=== PATIENT | female | born 1960 | race Caucasian/White ===

== ENCOUNTER 2017-08-15 18:28 | Emergency (ER) | payer OTHER, BC ==
[~2017-08-15] VITALS: Ht 160 cm; Wt 81.7 kg
[~2017-08-15 18:28] MED LIST: CELEBREX200 MG PO; ESTRACE2 MG PO; FENOFIBRATE48 MG PO; FLONASE ALLERG9.9 ML NS; METOPROLOL TART25 MG PO; NITROSTAT0.4 MG SL; PLAVIX75 MG PO; PRILOSEC20 MG PO; SIMVASTATIN10 MG PO; SYNTHROID112 MCG PO; ZOCOR40 MG PO; ZYRTEC10 MG PO
[2017-08-15] MEDS ORDERED: COREG CR40 MG PO (18:41)
[2017-08-15] MEDS ORDERED: ISENTRESS400 MG PO (19:21)
[2017-08-15] MEDS ORDERED: TRUVADA 200 MG1 EACH PO (19:21)
[2017-08-16] MEDS ORDERED: PHENERGAN25 MG PR (06:35)
== END 2017-08-15 19:46 | disposition home or self-care (01) ==
LOC: ED 18:28
DX: S69.82XA Other specified injuries of left wrist, hand and finger(s), initial encounter (principal); E03.9 Hypothyroidism, unspecified; E78.5 Hyperlipidemia, unspecified; K21.9 Gastro-esophageal reflux disease without esophagitis; Z88.8 Allergy status to other drugs, medicaments and biological substances; Z88.2 Allergy status to sulfonamides; Z88.6 Allergy status to analgesic agent; Z88.1 Allergy status to other antibiotic agents; Z79.899 Other long term (current) drug therapy; W46.0XXA Contact with hypodermic needle, initial encounter; Y99.0 Civilian activity done for income or pay
CPT/HCPCS: 84460; 86703; 86707; 86803; 87350; 99283

== ENCOUNTER 2017-08-16 03:37 | Emergency (ER) | payer OTHER, BC ==
[~2017-08-16] VITALS: Ht 160 cm; Wt 81.7 kg
[~2017-08-16 03:37] MED LIST changes: +COREG CR40 MG PO; +ISENTRESS400 MG PO; +TRUVADA 200 MG1 EACH PO
[2017-08-16] MEDS ORDERED: PHENERGAN25 MG PR (06:35)
== END 2017-08-16 06:50 | disposition home or self-care (01) ==
LOC: ED 03:37
DX: R11.10 Vomiting, unspecified (principal); E03.9 Hypothyroidism, unspecified; K21.9 Gastro-esophageal reflux disease without esophagitis; Z88.8 Allergy status to other drugs, medicaments and biological substances; Z88.2 Allergy status to sulfonamides; Z88.6 Allergy status to analgesic agent; Z88.1 Allergy status to other antibiotic agents
CPT/HCPCS: 80048; 85025; 96374; 99283; J2405; J7030

== ENCOUNTER 2021-05-24 06:00 | Day surgery (SDC) | payer BC ==
[~2021-05-24] VITALS: Ht 160 cm; Wt 83.0 kg
--- NOTE | ~2021-05-24 | OR ---
[facility] [address] [place], [place] [address] Draft DATE OF OPERATION: 05/24/2021 SURGEON: Ivan Motta MD PREOPERATIVE DIAGNOSES: 1. Chronic frontal sinusitis. 2. Chronic ethmoiditis. 3. Chronic maxillary sinusitis. 4. Chronic sphenoid sinusitis. 5. Deviated nasal septum. 6. Recurring acute sinusitis. 7. Sinus headaches. POSTOPERATIVE DIAGNOSES: 1. Chronic frontal sinusitis. 2. Chronic ethmoiditis. 3. Chronic maxillary sinusitis. 4. Chronic sphenoid sinusitis. 5. Deviated nasal septum. 6. Recurring acute sinusitis. 7. Sinus headaches. POSTOPERATIVE DIAGNOSES: 1. Chronic frontal sinusitis. 2. Chronic ethmoiditis. 3. Chronic maxillary sinusitis. 4. Chronic sphenoid sinusitis. 5. Deviated nasal septum. 6. Recurring acute sinusitis. 7. Sinus headaches. PROCEDURES: 1. Bilateral endoscopic frontal ethmoidectomy, 76679-97. 2. Nasal septoplasty, 78971. 3. Bilateral endoscopic sphenoidotomy, 42305-03. 4. Bilateral endoscopic maxillary antrostomies 21266-05. INDICATIONS: This is a 60-year-old female, who has had decades of sinus disease. She was scheduled for sinus surgery a decade ago, but decided not to and she suffered on because she was PATIENT NAME: WES PATEL OPERATIVE REPORT DATE OF : 60 REPORT #: [id number] PHYSICIAN: IVAN MOTTA MD PCP: SARAY KAY MD REPORT IS CONFIDENTIAL AND NOT TO BE RELEASED WITHOUT AUTHORIZATION [facility] [address] [place], [place] [address] Draft afraid of the surgery. Medical treatment was all forms failed. The CT scan showed sinus disease then and now. Because of medical failure to treat her sinus symptoms which were headaches, recurring infections, and obstruction, the above procedures were indicated. DESCRIPTION OF PROCEDURE: The patient was placed in the supine position, had an orotracheal intubation, was placed under general anesthesia. Photographs were taken preop, intraop, and postoperatively. The patient had about 1.5 mL of 2% lidocaine with 1:200,000 epinephrine injected into the lateral nasal wall and the anterior edge of the middle turbinates. The anterior inferior portion of middle turbinate was trimmed away. The uncinate process incised with a sickle knife. Backbiter forceps used to remove a Thru-Cut ethmoid punch and the microdebrider used to remove all of the diseased mucosa and the thin pieces of bone. The maxillary ostium was widened in the posterior fontanelle. Then, the diseased ethmoid air cells were opened one by one and a Thru-Cut ethmoid punch was used to microdebride her and the Kerrison forceps used to do the procedure. The lamina of the middle turbinate was then opened and posterior ethmoids dissected and a trans-ostial sphenoidotomy performed on that left side. Once the ceiling to the sphenoid sinus could be seen, the Kerrison forceps was used to resect the bone going superiorly and inferiorly widening the ostium with Kerrison forceps. Switching to a 70-degree scope, the dissection was carried anteriorly up into the frontal recess. The closed off frontal sinus was found with the upward directed suction and then the Kerrison forceps and the microdebrider and Thru-Cut ethmoid punch were used to fully expose it. The frontal sinus Kerrison forceps was used to remove the beak of the frontal sinus opening that up widely and then removing all of the diseased mucosa in the shards of bone cleanly out of the whole sinus labyrinth. A piece of NasoPore was placed into the sinus cavity to help prevent lateralization of the middle turbinates and some mupirocin ointment was placed on that. Septum was repaired because the endoscopic procedure could not be done on the right side because of the total obstruction, that was up high where it really closed off the middle meatus. A 4 mL of lidocaine were injected into the septum and the incision was made at the junction of the floor inferiorly. Carefully lifting up the mucoperichondrium, not producing any rent in the flap. The submucoperichondrium was lifted up and up onto the bone. the bone from cartilage with the Jonathan D knife and then the blunt end of the Keaton Mecklenburg dissection tool onto both sides, elevating it. Aaron scissors were used to cut that bone inferiorly as well as superiorly. The spur was identified and isolated and removed with a Arnaldo forceps. The septal bone was deviated anteriorly and high quite a bit, so this was removed until there was a good airway and clear exposure of the middle meatus for the sinus surgery. The flaps were then down with 4-0 gut and the anterior incision closed with 4-0 chromic. A couple of mLs of Marcaine were placed into that envelope to help with postop analgesia. The middle turbinate had been very much lateralized by the deviation of the septum, so the anterior inferior portion inferiorly PATIENT NAME: WES PATEL OPERATIVE REPORT DATE OF : 60 REPORT #: [id number] PHYSICIAN: IVAN MOTTA MD PCP: SARAY KAY MD REPORT IS CONFIDENTIAL AND NOT TO BE RELEASED WITHOUT AUTHORIZATION [facility] [address] [facility] [place], [place] [address] Draft was removed. Once there was a good exposure, then the uncinate process was removed. The maxillary ostium opened and widened with both the Thru-Cut ethmoid punch and a backbiter. The ethmoid dissection then was done completely opened just like the left side and then changing to a 70-degree scope coming forward to complete dissection of the ethmoids was done. The frontal sinus was tightly closed off with disease and the sagittal and coronal configuration of the ethmoid air cells. These were opened that was removed. The nasofrontal duct widened the beak removed with the Kerrison frontal sinus punch and then again completely opening all of the sinus oracle erp architect of the sinus labyrinth, carefully removing all of the ragged mucosa and all shards of bone until it was marsupialized into one grand cavity. More NasoPore was placed with some mupirocin that was at the end of the procedure. Estimated blood loss was about 100 mL. There were no complications. The patient did well. MD FABIO Ovalle/LARRY /[id number] Copies: ~ PATIENT NAME: WES PATEL OPERATIVE REPORT DATE OF : 60 REPORT #: [id number] PHYSICIAN: IVAN MOTTA MD PCP: SARAY KAY MD REPORT IS CONFIDENTIAL AND NOT TO BE RELEASED WITHOUT AUTHORIZATION
[~2021-05-24 06:00] MED LIST changes: +COZAAR50 MG PO; +CRESTOR20 MG PO; +PHENERGAN25 MG PR
--- NOTE | 2021-05-24 10:14 | NUR ---
05/24/21 Jim4 Anita Aguilar 1010-PATIENT ARRIVED TO PACU NONAROUSABLE. ON 6L MASK ORAL AIRWAY IN PLACE RR EVEN. SR. IVF INFUSING. NO DRAINAGE TO NOSE GAUZE IN PLACE.
--- NOTE | 2021-05-24 11:27 | NUR ---
UPON RETURNING COUGHING BRIEFLY AND INCONT OF URINE. UP TO BSC VOIDS QS.
--- NOTE | 2021-05-24 11:50 | NUR ---
1150-PATIENT UP TO THE BATHROOM WITH 1 RN ASSIST. GAIT STEADY AND TOLERATED WELL. 1205-PATIENT RESTING IN BED. RR IS EVEN AND UNLABORED. VSS. PATIENT STATES SHE HAS A HEADACHE AND RATES PAIN 2/10. DENIES NAUSEA. TYLENOL GIVEN PER EMAR. DRESSING WAS CLEAN, DRY, AND INTACT. LIGHTS TURNED OFF. CALL LIGHT WITHIN REACH.
== END 2021-05-24 12:50 | disposition home or self-care (01) ==
LOC: DS 06:00 → OPS 06:00 → DS 06:45 → OPS 12:50
PROVIDERS: ATTEND Otolaryngology
PROC: 09BW8ZZ Excision of Right Sphenoid Sinus, Via Natural or Artificial Opening Endoscopic (ICD-10-PCS; 2021-05-24)
PROC: 09BX8ZZ Excision of Left Sphenoid Sinus, Via Natural or Artificial Opening Endoscopic (ICD-10-PCS; 2021-05-24)
PROC: 09BQ8ZZ Excision of Right Maxillary Sinus, Via Natural or Artificial Opening Endoscopic (ICD-10-PCS; 2021-05-24)
PROC: 09BR8ZZ Excision of Left Maxillary Sinus, Via Natural or Artificial Opening Endoscopic (ICD-10-PCS; 2021-05-24)
PROC: 09BU8ZZ Excision of Right Ethmoid Sinus, Via Natural or Artificial Opening Endoscopic (ICD-10-PCS; 2021-05-24)
PROC: 09SM4ZZ Reposition Nasal Septum, Percutaneous Endoscopic Approach (ICD-10-PCS; 2021-05-24)
PROC: 09BV8ZZ Excision of Left Ethmoid Sinus, Via Natural or Artificial Opening Endoscopic (ICD-10-PCS; principal; 2021-05-24 06:45)
DX: J32.8 Other chronic sinusitis (principal); J01.81 Other acute recurrent sinusitis; J34.2 Deviated nasal septum; I10 Essential (primary) hypertension; Z88.2 Allergy status to sulfonamides; Z88.8 Allergy status to other drugs, medicaments and biological substances
CPT/HCPCS: J0330; J1100; J1790; J2001; J2250; J2405; J2704; J7121

== ENCOUNTER 2025-04-22 06:44 | Day surgery (SDC) | payer BC ==
[~2025-04-22] VITALS: Ht 160 cm; Wt 75.0 kg
[~2025-04-22 06:44] MED LIST changes: +FLONASE ALLERG9.9 ML NAS; +MIDAZOLAM HCL 5 MG/5 ML VIAL IV PRN; +VENTOLIN HFA18 GM INH; +fentaNYL citrate 100 MCG/2 ML VIAL IV PRN
[2025-04-22 06:57] VITALS: BP 144/80
[2025-04-22] MEDS ORDERED: LIDOCAINE HCL 1% 5 ML SDV INJ ONE (07:00)
[2025-04-22] MEDS ORDERED: IBLOOD GLUCOSE TEST STRIP 1 EA TEST VI PRN (07:00)
[2025-04-22] MEDS ORDERED: LACTATED RINGER'S 1,000 ML IV SCH (07:00)
[2025-04-22] MEDS ORDERED: DEXAMETHASONE SOD PHOS 4 MG/ML VIAL IV ONE (07:15)
[2025-04-22] MEDS ORDERED: MIDAZOLAM HCL 5 MG/5 ML VIAL ONE (08:19)
[2025-04-22] MEDS ORDERED: fentaNYL citrate 100 MCG/2 ML VIAL ONE (08:19)
--- NOTE | 2025-04-22 09:19 | NUR ---
04/22/25 0919 Sheets,Meri 0914 PT ARRIVED TO PACU ON 3L VIA NC, PT WAKES EASILY AND DENIES CONCERNS. PT ENCOURAGED TO PASS GAS NEEDED.
[2025-04-22 09:46] VITALS: BP 151/80
--- NOTE | 2025-04-22 12:57 | OR ---
[facility] [address] [place], [place] [address] Signed DATE OF OPERATION: 04/22/2025 SURGEON: Alex Donovan MD PREOPERATIVE DIAGNOSIS: Colon screening. POSTOPERATIVE DIAGNOSIS: Sigmoid and left-sided diverticulosis. PROCEDURE: Total colonoscopy to cecum with biopsy of rectum. ANESTHESIA: Intravenous sedation; fentanyl 150 mcg and Versed 5 mg. PREOPERATIVE MEDICATIONS: Zofran 4 mg and Decadron 4 mg. 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 She does have family history of colitis in a grandmother and her son. She is currently symptom free; having no bleeding, diarrhea or constipation. She is admitted to undergo screening colonoscopy based on interval of time since last colonoscopy. She understands the risk of bleeding, infection, and perforation, wished to proceed. FINDINGS: The prep was excellent. Complete colonoscopy was undertaken of the cecum. There were numerous diverticula of the sigmoid and left colon, but no evidence of colitis or polyps. A biopsy was obtained to rule out occult colitis. DESCRIPTION OF PROCEDURE: The patient was brought to the endoscopy suite and placed in the lateral decubitus position, given intravenous sedation to the point of slurred speech and nystagmus. Digital rectal examination was normal. An Olympus video colonoscope was passed in the rectum and manipulated throughout the colon noting numerous diverticula. Passage beyond the splenic flexure was assisted by putting the patient in a supine position. This allowed for complete intubation of the colon with good visualization of the cecum and ileocecal valve. The scope was withdrawn from that point and examination throughout Electronically Signed By: ALEX DONOVAN MD 04/22/25 1257 PATIENT NAME: WES PATEL OPERATIVE REPORT DATE OF : 60 REPORT #: [id number] PHYSICIAN: ALEX DONOVAN MD PCP: ESE KULKARNI MD REPORT IS CONFIDENTIAL AND NOT TO BE RELEASED WITHOUT AUTHORIZATION [facility] [address] [place], [place] [address] Signed showed no sign of abnormality other than the diverticula of the left colon and sigmoid. Biopsy of the rectum was undertaken to rule out occult colitis. The scope was removed and the patient was taken to the recovery room in good condition. CONCLUDING DIAGNOSIS: Diverticulosis without evidence of inflammation. PLAN: Recommend repeat colonoscopy in 10 years, sooner if clinically indicated. Also, recommend high-fiber diet based on diverticulosis. She will return to the ongoing care of Dr. Ese Kulkarni. MD MARINO Germani/ESPERANZAL /[id number] cc: Dr. Kulkarni Copies: ~ Electronically Signed By: ALEX DONOVAN MD 04/22/25 1257 PATIENT NAME: WES PATEL OPERATIVE REPORT DATE OF : 60 REPORT #: [id number] PHYSICIAN: ALEX DONOVAN MD PCP: ESE KULKARNI MD REPORT IS CONFIDENTIAL AND NOT TO BE RELEASED WITHOUT AUTHORIZATION
--- NOTE | 2025-04-26 10:32 | PATH ---
[facility] [address] [facility] [place], [place] [address] Signed SPECIMEN(S): A RECTUM BIOPSY SPECIMEN SOURCE: A. RECTUM BIOPSY CLINICAL HISTORY: . IBS, screening, diverticulosis FINAL PATHOLOGIC DIAGNOSIS: Rectum biopsy: - Benign colonic mucosa, negative for pathologic inflammation. - Focal slight hyperplastic mucosal features. JVR MICROSCOPIC EXAMINATION: Histologic sections of all submitted blocks are examined by light microscopy. These findings, together with the gross examination, support the pathologic diagnosis. GROSS DESCRIPTION: The specimen, labeled and designated "Linda rectum biopsy," is received in formalin and consists of two stroud soft tissue fragments, ranging from 0.2-0.3 cm. Entirely submitted in (A1). VB (under the direct supervision of a pathologist) The Gross Description was prepared using a voice recognition system. The report was reviewed for accuracy; however, sound-alike word errors, addition and/or deletions may occur. If there is any question about this report, please contact Client Services. ADDITIONAL NOTES: Immunohistochemical and/or in situ hybridization studies if performed in this case included appropriate positive controls that reacted as expected. This test was developed and its performance characteristics determined by [facility]. It has not been cleared or approved by the U.S. Food and Drug Administration. The FDA has determined that such clearance or approval is not necessary. This test is used for clinical purposes. It should not be regarded as investigational or for research. [facility] is certified under the Clinical Laboratory Improvement Amendments of 1988 (CLIA) as qualified to perform high complexity clinical laboratory testing. PATIENT NAME: WES PATEL PATHOLOGY DATE OF : 60 REPORT #: [id number] PHYSICIAN: TIERRA GREENBERG PCP: GEETHA KULKARNI MD REPORT IS CONFIDENTIAL AND NOT TO BE RELEASED WITHOUT AUTHORIZATION [address] [address] Signed PERFORMING LABORATORY: Technical component was performed by [email or web address], [address] [place] [address] (CLIA# [id number]). Professional interpretation was performed by [facility] Pathology [facility] - [address] [place] [address] (CLIA#: [id number]). Diagnostician: Gary Felipe MD Pathologist Electronically Signed 04/26/2025 Copies: ~ PATIENT NAME: WES PATEL PATHOLOGY DATE OF : 60 REPORT #: [id number] PHYSICIAN: TIERRA GREENBERG PCP: GEETHA KULKARNI MD REPORT IS CONFIDENTIAL AND NOT TO BE RELEASED WITHOUT AUTHORIZATION
== END 2025-04-22 10:06 | disposition home or self-care (01) ==
LOC: OPS 06:44 → DS 06:44 → OPS 07:30 → DS 07:30 → OPS 08:15
PROVIDERS: ATTEND Surgery
PROC: 0DDP8ZX Extraction of Rectum, Via Natural or Artificial Opening Endoscopic, Diagnostic (ICD-10-PCS; principal; 2025-04-22 08:15)
DX: Z12.11 Encounter for screening for malignant neoplasm of colon (principal); K57.30 Diverticulosis of large intestine without perforation or abscess without bleeding; K62.89 Other specified diseases of anus and rectum; K21.9 Gastro-esophageal reflux disease without esophagitis; I10 Essential (primary) hypertension; J45.909 Unspecified asthma, uncomplicated; E03.9 Hypothyroidism, unspecified; Z88.2 Allergy status to sulfonamides; Z88.6 Allergy status to analgesic agent; Z79.890 Hormone replacement therapy; Z79.899 Other long term (current) drug therapy; Z90.710 Acquired absence of both cervix and uterus; Z83.79 Family history of other diseases of the digestive system
CPT/HCPCS: 99153; G0500; J1100; J2250; J2405; J3010; J7121